=== PATIENT | female | born 1945 | race Caucasian/White ===

== ENCOUNTER 2023-03-28 11:16 | Observation (INO) | payer MEDICARE, OTHER ==
[2023-03-28 17:19] VITALS: BMI 23.3
[2023-03-28] MEDS ORDERED: Ondansetron PF 4 MG/2 ML Vial IVP PRN (17:36)
[2023-03-28] MEDS ORDERED: Acetaminophen 325 MG TAB PO PRN (17:36)
[2023-03-28 17:52] LABS: Anion Gap 12 mmol/L (10-20); BUN (Urea Nitrogen) 17 mg/dL (9.8-20.1); Calc. Creatinine Clearance 56 mL/min (70-130); Calcium 8.9 mg/dL (7.8-10.44); Carbon Dioxide 24 mmol/L (23-31); Chloride 95 mmol/L (98-107); Estimated GFR 69; Glucose 81 mg/dL (83-110); Sodium 127 mmol/L (136-145)
[2023-03-28] MEDS ORDERED: Artificial Tear Sol 15 ML BOT EA EYE PRN (17:53)
[2023-03-28] MEDS: Sodium Chloride 0.9% 1,000 ML IV SCH (18:14)
[2023-03-28] MEDS: Heparin 5,000 UNITS/ML VIAL SC SCH (20:04)
[2023-03-28] MEDS: Pregabalin 50 MG CAP PO SCH (20:05)
[2023-03-28] MEDS ORDERED: Aspirin Chewable 81 MG TAB PO SCH (21:00)
[2023-03-28] MEDS ORDERED: Famotidine 20 MG TAB PO SCH (21:00)
[2023-03-29] MEDS: Sodium Chloride 0.9% 1,000 ML IV SCH (02:56)
[2023-03-29 04:52] LABS: #Basophils 0.1 thou/uL (0.0-0.2); #Eosinphils 0.3 thou/uL (0.0-0.7); #Monocytes 0.6 thou/uL (0.11-0.59); #Neutrophils 3.9 thou/uL (1.40-6.50); %Basophils 0.7 % (0.0-1.0); %Eosinophils 4.4 % (0.0-10.0); %Lymphocytes 32.2 % (21.0-51.0); %Monocytes 8.7 % (0.0-10.0); %Neutrophils 53.6 % (42.0-75.0); Hematocrit 34.3 % (36.0-47.0); Hemoglobin 11.9 g/dL (12.0-16.0); Mean Corpuscular HGB CONC 34.7 g/dL (32.0-36.0); Mean Corpuscular Hemoglobin 32.2 pg (27.0-31.0); Mean Platelet Volume 9.5 fL (7.4-10.4); Platelet Count 236 10x3/uL (130-400); RBC Distribution Width 12.1 % (11.5-14.5); Red Blood Cell (RBC) Count 3.69 mill/uL (4.20-5.40); White Blood Cell (WBC) Count 7.2 10x3/uL (4.8-10.8)
[2023-03-29 07:25] LABS: Anion Gap 12 mmol/L (10-20); Calc. Creatinine Clearance 50 mL/min (70-130); Calcium 8.6 mg/dL (7.8-10.44); Carbon Dioxide 25 mmol/L (23-31); Chloride 100 mmol/L (98-107); Estimated GFR 60; Glucose 84 mg/dL (83-110); Potassium 4.2 mmol/L (3.5-5.1); Sodium 133 mmol/L (136-145)
[2023-03-29 07:26] LABS: BUN (Urea Nitrogen) 17 mg/dL (9.8-20.1)
[2023-03-29 08:55] LABS: Cardiac Risk 2.7 (Less than 4.5)
[2023-03-29] MEDS: Heparin 5,000 UNITS/ML VIAL SC SCH ×2 (08:55→14:24)
[2023-03-29] MEDS: Pregabalin 50 MG CAP PO SCH (08:56)
[2023-03-29] MEDS ORDERED: Loratadine 10 MG TAB PO SCH (09:00)
[2023-03-29] MEDS ORDERED: Clopidogrel Bisulfate 75 MG TAB PO SCH (09:00)
[2023-03-29 10:41] VITALS: TEMP 97.4
[2023-03-29 17:22] VITALS: BP 151/70
[2023-03-29] MEDS ORDERED: Atorvastatin Calcium 40 MG TAB PO SCH (21:00)
[2023-03-29] MEDS ORDERED: Pregabalin 50 MG CAP PO SCH (21:00)
[2023-03-30] MEDS ORDERED: Ursodiol 300 MG CAP PO SCH (09:00)
== END 2023-03-29 20:02 | disposition home or self-care (01) ==
LOC: INTOOBSV 16:51 → 2NO 16:51
PROVIDERS: ADMIT Internal Medicine; ATTEND Internal Medicine
DX: E87.1 Hypo-osmolality and hyponatremia (principal); I65.22 Occlusion and stenosis of left carotid artery; I08.9 Rheumatic multiple valve disease, unspecified; I10 Essential (primary) hypertension; K21.9 Gastro-esophageal reflux disease without esophagitis; I95.9 Hypotension, unspecified; Z79.82 Long term (current) use of aspirin; Z79.899 Other long term (current) drug therapy; Z90.49 Acquired absence of other specified parts of digestive tract; Z90.710 Acquired absence of both cervix and uterus; Z90.89 Acquired absence of other organs; Z79.02 Long term (current) use of antithrombotics/antiplatelets
CPT/HCPCS: 36415; 80048; 80061; 82533; 83935; 84300; 84443; 85025; 93306; 93880; 96372; G0378; J1644; J7050